=== PATIENT | female | born 1955 | race Caucasian/White ===

== ENCOUNTER 2021-08-28 09:30 | Outpatient (CLI) | payer OTHER | END 2021-08-28 09:31 | disposition home or self-care (01) | LOC: PET 09:30 | PROVIDERS: ATTEND Radiology Radiation Oncology | DX: C20 Malignant neoplasm of rectum (principal); R59.0 Localized enlarged lymph nodes; N89.8 Other specified noninflammatory disorders of vagina | CPT/HCPCS: 78815; A9552 ==

== ENCOUNTER 2021-09-26 05:58 | Observation (INO) | payer SELFPAY ==
[2021-09-25 10:33] VITALS: BMI 23.0
[2021-09-26] MEDS ORDERED: Bupivacaine/Epinephrine 0.25% 30 ML VIAL ONE ×2 (06:47→09:45)
[2021-09-26] MEDS ORDERED: Acetaminophen 500 MG TAB ONE (07:07)
[2021-09-26] MEDS ORDERED: Ketorolac Tromethamine 30 MG/ML VIAL ONE (07:07)
[2021-09-26 07:26] LABS: #Basophils 0.1 thou/uL (0.0-0.2); #Eosinphils 0.2 thou/uL (0.0-0.7); #Lymphocytes 2.1 thou/uL (1.20-3.40); #Monocytes 0.7 thou/uL (0.11-0.59); #Neutrophils 4.5 thou/uL (1.40-6.50); %Basophils 0.9 % (0.0-1.0); %Eosinophils 2.5 % (0.0-10.0); %Lymphocytes 27.1 % (21.0-51.0); %Monocytes 9.8 % (0.0-10.0); %Neutrophils 59.6 % (42.0-75.0); Hemoglobin 12.1 g/dL (12.0-16.0); Mean Corpuscular HGB CONC 33.4 g/dL (32.0-36.0); Mean Corpuscular Hemoglobin 30.9 pg (27.0-31.0); Mean Corpuscular Volume 92.4 fL (78.0-98.0); Mean Platelet Volume 7.7 fL (7.4-10.4); Platelet Count 383 thou/uL (130-400); RBC Distribution Width 12.1 % (11.5-14.5); Red Blood Cell (RBC) Count 3.92 mill/uL (4.20-5.40); White Blood Cell (WBC) Count 7.6 thou/uL (4.8-10.8)
[2021-09-26] MEDS ORDERED: Sodium Chloride 0.9% 100 ML ONE (07:39)
[2021-09-26] MEDS ORDERED: CEFAZOLIN 2 GM VIAL ONE (07:39)
[2021-09-26 07:45] LABS: Anion Gap 15 mmol/L (10-20); BUN (Urea Nitrogen) 23 mg/dL (9.8-20.1); Calc. Creatinine Clearance 56 mL/min (70-130); Calcium 8.9 mg/dL (7.8-10.44); Carbon Dioxide 25 mmol/L (23-31); Chloride 105 mmol/L (98-107); Estimated GFR 65; Glucose 102 mg/dL (80-115); Potassium 3.9 mmol/L (3.5-5.1); Sodium 141 mmol/L (136-145)
[2021-09-26] MEDS ORDERED: fentaNYL Citrate/PF 100 MCG/2 ML SYRINGE ONE (08:03)
[2021-09-26] MEDS ORDERED: Propofol 1,000 MG/100 ML VIAL IV ONE (08:03)
[2021-09-26] MEDS ORDERED: Midazolam HCl 5 mg/5 ml Vial ONE (08:03)
[2021-09-26] MEDS ORDERED: Phenylephrine 10 MG/ML VIAL ONE (08:43)
[2021-09-26] MEDS ORDERED: Dexamethasone 20 MG/5 ML VIAL ONE (08:43)
[2021-09-26] MEDS ORDERED: PROPOFOL 200 MG/20 ML VIAL ONE (08:43)
[2021-09-26] MEDS ORDERED: Lidocaine 1% PF 5 ML VIAL ONE (08:51)
[2021-09-26] MEDS ORDERED: MORPHINE 5 MG/10 ML PF VIAL ONE (09:52)
[2021-09-26] MEDS ORDERED: PACU-Morphine 4MG/ML VIAL SLOW IVP PRN (11:33)
[2021-09-26] MEDS ORDERED: Promethazine HCl 25 MG/ML VIAL IM PRN (11:33)
[2021-09-26] MEDS ORDERED: HYDROmorphone 2 MG/ML VIAL SLOW IVP PRN (11:33)
[2021-09-26] MEDS ORDERED: Morphine Sulfate 2 MG/ML SYRINGE SLOW IVP PRN (11:33)
[2021-09-26] MEDS ORDERED: Promethazine HCl 25 MG/ML VIAL IVPB PRN (11:33)
[2021-09-26] MEDS ORDERED: Ondansetron HCl/PF 4 MG/2 ML Vial IVP PRN (11:33)
[2021-09-26] MEDS ORDERED: HYDROcodone/Acetaminophen 10/325 mg Tablet PO PRN (11:56)
[2021-09-26] MEDS ORDERED: Dextrose 5% in Water 1,000 ML IV PRN (11:56)
[2021-09-26] MEDS ORDERED: Dextrose 50% Abboject 50 ML SYRINGE SLOW IVP PRN (11:56)
[2021-09-26] MEDS ORDERED: Ondansetron ODT 4 MG TAB PO PRN (11:56)
[2021-09-26] MEDS ORDERED: Lorazepam 1 MG TAB PO PRN (13:29)
[2021-09-26] MEDS ORDERED: Prevnar 13-Val Conj/PF 0.5 ML SYRINGE IM ONE (14:45)
[2021-09-26] MEDS: D5 1/2 NS w/20 mEq KCL 1,000 ML IV SCH (15:42)
[2021-09-27 05:04] VITALS: TEMP 97.8
[2021-09-27 07:27] LABS: #Basophils 0.1 thou/uL (0.0-0.2); #Lymphocytes 0.7 thou/uL (1.20-3.40); #Monocytes 0.7 thou/uL (0.11-0.59); #Neutrophils 8.1 thou/uL (1.40-6.50); %Basophils 1.3 % (0.0-1.0); %Eosinophils 0.1 % (0.0-10.0); %Lymphocytes 6.9 % (21.0-51.0); %Monocytes 7.6 % (0.0-10.0); %Neutrophils 84.1 % (42.0-75.0); Mean Corpuscular HGB CONC 32.2 g/dL (32.0-36.0); Mean Corpuscular Hemoglobin 30.2 pg (27.0-31.0); Mean Corpuscular Volume 93.8 fL (78.0-98.0); Mean Platelet Volume 8.4 fL (7.4-10.4); Platelet Count 310 thou/uL (130-400); RBC Distribution Width 12.4 % (11.5-14.5); White Blood Cell (WBC) Count 9.6 thou/uL (4.8-10.8)
[2021-09-27 08:52] VITALS: BP 100/59
[2021-09-27] MEDS: D5 1/2 NS w/20 mEq KCL 1,000 ML IV SCH (10:37)
== END 2021-09-27 16:00 | disposition home or self-care (01) ==
LOC: SDC 05:58 → SJJU 13:00
PROVIDERS: ADMIT Specialist; ATTEND Specialist
PROC: 0JH60WZ Insertion of Totally Implantable Vascular Access Device into Chest Subcutaneous Tissue and Fascia, Open Approach (ICD-10-PCS; principal; 2021-09-26)
PROC: 02HV33Z Insertion of Infusion Device into Superior Vena Cava, Percutaneous Approach (ICD-10-PCS; 2021-09-26)
PROC: 07BH0ZX Excision of Right Inguinal Lymphatic, Open Approach, Diagnostic (ICD-10-PCS; 2021-09-26)
PROC: 0UBG7ZX Excision of Vagina, Via Natural or Artificial Opening, Diagnostic (ICD-10-PCS; 2021-09-26)
PROC: 0DBP7ZX Excision of Rectum, Via Natural or Artificial Opening, Diagnostic (ICD-10-PCS; 2021-09-26)
DX: C20 Malignant neoplasm of rectum (principal); C77.4 Secondary and unspecified malignant neoplasm of inguinal and lower limb lymph nodes; C79.82 Secondary malignant neoplasm of genital organs; Z79.899 Other long term (current) drug therapy; Z88.0 Allergy status to penicillin; Z20.822 Contact with and (suspected) exposure to COVID-19
CPT/HCPCS: 36415; 80048; 85025; 87811; 88305; 93005; 93010; C1788; J0690; J1100; J1642; J1885; J2250; J2274; J2370; J2704; J3480; J3490